=== PATIENT | male | born 1990 | race Caucasian/White ===

== ENCOUNTER 2017-09-29 08:56 | Emergency (ER) | payer SELFPAY ==
[~2017-09-29] VITALS: Ht 172.7 cm; Wt 63.0 kg
[2017-09-29] MEDS ORDERED: SODIUM CHLORIDE 0.9% 1,000 ML IV ONE (09:07)
[2017-09-29] MEDS ORDERED: LORazepam 2 MG/ML, 1ML ONE (09:29)
[2017-09-29] MEDS ORDERED: ONDANSETRON 2MG/ML, 2ML ONE (09:29)
[2017-09-29] MEDS ORDERED: SODIUM CHLORIDE 0.9% 1,000ML IVBOLUS ONE (09:30)
[2017-09-29] MEDS ORDERED: PLEASE ENTER ALLERGIES MC SCH ×2 (09:30)
[2017-09-29] MEDS ORDERED: LORazepam 2 MG/ML, 1ML IVPush ONE (09:30)
[2017-09-29] MEDS ORDERED: SODIUM CHLORIDE FLUSH 10ML SYR IVF ONE (09:30)
[2017-09-29] MEDS ORDERED: ONDANSETRON 2MG/ML, 2ML IVPush ONE (09:30)
[2017-09-29 09:54] LABS: HEMATOCRIT 46.8 % (39.2-51.8); HEMOGLOBIN 15.8 g/dL (13.7-18.0); WHITE BLOOD COUNT 14.1 x10^3/uL (3.4-10)
[2017-09-29 10:01] LABS: BLOOD UREA NITROGEN 14 mg/dL (7-18)
[2017-09-29 10:04] LABS: ASPARTATE AMINO TRANSFERASE 22 U/L (15-37)
[2017-09-29] MEDS ORDERED: OMNIPAQUE 350 MG/ML, 100ML BOTTLE ONE (13:06)
[2017-09-29 14:00] VITALS: BP 105/75
== END 2017-09-29 14:45 | disposition home or self-care (01) ==
LOC: ED 11:23
DX: K52.9 Noninfective gastroenteritis and colitis, unspecified (principal); F15.10 Other stimulant abuse, uncomplicated; F17.200 Nicotine dependence, unspecified, uncomplicated
CPT/HCPCS: 36415; 74022; 74177; 80053; 83690; 85025; 96361; 96374; 96375; 99285; J2060; J2405; J7030; Q9967